=== PATIENT | male | born 1990 | race Caucasian/White ===

== ENCOUNTER 2019-07-31 11:05 | Day surgery (SDC) | payer BC ==
[2019-07-30 09:13] VITALS: BMI 29.4
[2019-07-31] MEDS ORDERED: LIDOCAINE HCL 1%, 10 MG/ML (20ML VIAL) ONE (12:01)
--- NOTE | 2019-07-31 12:12 | HP ---
History & Physical Update - History History: No Change - Physical Physical: No Change - Assessment Assessment: No Change - Plan Plan: No Change (excision lipoma right shoulder; informed consent obtained)
[2019-07-31] MEDS ORDERED: DEXMEDETOMIDINE HCL 200 MCG/2 ML IVPB ONE (12:13)
[2019-07-31] MEDS ORDERED: PROPOFOL 20 ML ONE (12:16)
[2019-07-31] MEDS ORDERED: MIDAZOLAM HCL 2 MG/2 ML SINGLE DOSE VIAL ONE ×2 (12:16)
[2019-07-31] MEDS ORDERED: fentaNYL CITRATE 250 MCG/5 ML VIAL ONE (12:16)
[2019-07-31] MEDS ORDERED: BUPIVACAINE HCL/PF 0.5% (5 MG/ML) 30 ML VIAL IJ ONE (12:42)
[2019-07-31] MEDS ORDERED: LIDOCAINE HCL 1%, 10 MG/ML (20ML VIAL) NR ONE (12:42)
[2019-07-31] MEDS ORDERED: PROMETHAZINE HCL 25 MG/1 ML VIAL IVPB PRN (13:01)
[2019-07-31] MEDS ORDERED: ONDANSETRON 4 MG/2 ML VIAL IVPUSH PRN (13:01)
[2019-07-31] MEDS ORDERED: oxyCODONE HCL 5 MG TABLET PO PRN (13:01)
[2019-07-31] MEDS ORDERED: ePHEDrine SULFATE 50 MG/1 ML AMPULE ONE (13:02)
[2019-07-31] MEDS ORDERED: ROCURONIUM BROMIDE 50 MG/5 ML SYRINGE ONE (13:07)
[2019-07-31] MEDS ORDERED: LACTATED RINGERS SOLUTION 1,000 ML IV SCH (13:15)
[2019-07-31] MEDS ORDERED: BENZOIN TINCTURE SWABSTICK TP ONE (13:27)
[2019-07-31] MEDS ORDERED: ONDANSETRON 4 MG/2 ML VIAL ONE (13:41)
[2019-07-31] MEDS ORDERED: KETOROLAC TROMETHAMINE 30 MG/1 ML VIAL ONE (13:41)
[2019-07-31] MEDS ORDERED: KETOROLAC TROMETHAMINE 30 MG/1 ML VIAL IVPUSH ONE (13:44)
--- NOTE | 2019-07-31 13:51 | OP ---
Operative Note - Note: Operative Date: 07/31/19 Pre-Operative Diagnosis: lipoma right shoulder Operation: excision lipoma right shoulder Findings: 3 x 5 cm. lipoma right shoulder Post-Operative Diagnosis: Same as Pre-op Surgeon: Davy Albert [employer] Demonstrator: Pratibha Bray Anesthesiologist/PRESIDENT [employer] ACQUISTION: Abdoulaye Fernandez Anesthesia: MAC Specimens Removed: lipoma Estimated Blood Loss (mls): 10
--- NOTE | 2019-07-31 14:06 | SURG ---
Surgery Script Worker Note Script Worker: Pratibha Bray PA-C (Suzy) Date of Service: 07/31/19 Diagnosis: lipoma right shoulder Procedure: Operation: excision lipoma right shoulder I was present for the entirety of the operative procedure. For further detail, please refer to operative report. Visit type - Case Type Case Type: Scheduled - Emergency Emergency Visit: No - New patient This patient is new to me today: Yes Date on this admission: 07/31/19 - Critical Care Critical Care patient: No
[2019-07-31 15:00] VITALS: BP 112/62; PULSE 95; TEMP 95
--- NOTE | 2019-08-05 18:15 | PATH ---
Surgical Pathology Report Patient Name: KIRBY MADSEN Med. Rec. #: [id number] /Age/Gender: 1990 (Age: 29) / M Account: [id number] Location: [facility] SURGICAL Taken: 07/31/2019 Received: 07/31/2019 Reported: 08/05/2019 Physicians: Davy Albert MD Specimen(s) Received LIPOMA RIGHT UPPER BACK Clinical History Lipoma right upper back Final Diagnosis LIPOMA, RIGHT UPPER BACK, EXCISION: BENIGN LIPOMATOUS NEOPLASM, CONSISTENT WITH HIBERNOMA ADMIXED WITH MATURE FATTY TISSUE. Comment: Immunohistochemistry stain S-100 highlights the lipomatous cells, supports the above diagnosis. S-100 performed and interpreted at [facility]. Positive and negative controls (internal if applicable) show appropriate results. Electronically Signed Renetta Mcgee M.D. Gross Description Received in formalin, labeled "lipoma right upper back" it a portion of irregular yellow adipose tissue measuring 3 x 2 x 1 x 1 cm. The specimen is serially sectioned and revealed homogeneous yellow adipose tissue. The specimen is entirely submitted into 2 cassettes. KWS/07/31/2019 sulki/07/31/2019
--- NOTE | 2019-08-18 17:59 | OP ---
DATE OF OPERATION: 07/31/2019 PREOPERATIVE DIAGNOSIS: Lipoma of the right shoulder. POSTOPERATIVE DIAGNOSIS: Lipoma of the right shoulder. PROCEDURE: Excision, lipoma of right shoulder. SURGEON: Davy Albert MD PATTERN MARKING SUPERVISOR: Pratibha Bray PA-C ANESTHESIA: Local with IV sedation. OPERATIVE FINDINGS: There was approximately a 3 x 5 cm in greatest dimension soft tissue mass consistent with a lipoma in the right shoulder. It was subfascial in nature and it origin was in the deep trapezius muscle of the shoulder. The rest of the findings are unremarkable. PROCEDURE: The patient was placed on the operating table in the left lateral decubitus position and the area over the palpable abnormality that had been previously marked was prepped with ChloraPrep and draped in sterile fashion. A timeout was taken and, after adequate intravenous sedation, 1% lidocaine and 0.5 % Marcaine was injected into the skin, where an incision had been previously outlined. Incision was made with a scalpel, taken down through skin and subcutaneous fat, and the fascia opened. The lipoma was noted to be emanating from the substance of the trapezius muscle. It was traced down to its origin, where it was clamped and excised and sent for pathological examination. The pedicle was ligated with 2-0 Vicryl suture. Hemostasis was secured with electrocautery and the wound irrigated with sterile saline and closed in layers with interrupted 2-0 Vicryl for the deep fascia, interrupted 2-0 Vicryl for the deep subcutaneous tissue, 3-0 Vicryl for the deep dermis, and 3-0 Prolene horizontal vertical mattress sutures to reapproximate the skin edges. Dry sterile dressings were placed and the procedure terminated at this point and the patient transferred to the post-anesthesia care unit in stable condition, awake and alert. Estimated blood loss 10 mL, replaced with crystalloid. Drains: None. Specimen: Lipoma to Pathology. I, Davy Albert, was physically present in the operating room from the time the patient was placed on the operating table until he was transferred to the post-anesthesia care unit in [employer]. MD MACRINA Gonzalez/[id number] [facility]
== END 2019-07-31 15:24 | disposition home or self-care (01) ==
LOC: JASU-SURG 11:05
PROVIDERS: ATTEND Surgery
PROC: 0JBD0ZZ Excision of Right Upper Arm Subcutaneous Tissue and Fascia, Open Approach (ICD-10-PCS; 2019-07-31)
PROC: 0KB50ZZ Excision of Right Shoulder Muscle, Open Approach (ICD-10-PCS; principal; 2019-07-31 12:30)
DX: D17.9 Benign lipomatous neoplasm, unspecified (principal)
CPT/HCPCS: 88304-TC; 88342-TC; 94760